=== PATIENT | female | born 1975 | race Two or more races ===

== ENCOUNTER 2024-08-13 16:26 | Emergency (ER) | payer OTHER ==
[~2024-08-13] VITALS: Ht 177.8 cm; Wt 81.6 kg
[2024-08-13] MEDS ORDERED: LOSARTAN-HCTZ1 EAC2 PO (17:13)
[2024-08-13] MEDS ORDERED: ATORVASTATIN CA10 MG PO (17:13)
[2024-08-13] MEDS ORDERED: TRULICITY3 MG/0.5 M SQ (17:13)
[2024-08-13] MEDS ORDERED: METOPROLOL SUCC25 MG PO (17:13)
[2024-08-13] MEDS ORDERED: BUPROPION XL300 MG PO (17:13)
[2024-08-13] MEDS ORDERED: FAMOTIDINE/PF 20 MG/2 ML VIAL IV PUSH STA (17:50)
[2024-08-13] MEDS ORDERED: ONDANSETRON HCL 2 MG/ML VIAL IV STA (17:50)
[2024-08-13 19:17] LABS: CALCIUM 10.3 mg/dL (8.5-10.1); CREATININE SERUM 1.04 mg/dL (0.55-1.02); GFR 56.8; POTASSIUM 4.43 mEq/L (3.5-5.1)
== END 2024-08-13 20:56 | disposition home or self-care (01) ==
LOC: ER 16:29
PROVIDERS: General Practice
DX: K29.70 Gastritis, unspecified, without bleeding (principal); Z91.013 Allergy to seafood